=== PATIENT | male | born 1945 | race Caucasian/White ===

== ENCOUNTER 2023-06-13 10:21 | Emergency (ER) | payer OTHER, MEDICARE, SELFPAY ==
[2023-06-13 10:25] VITALS: BP 152/75
[2023-06-13 10:43] VITALS: BMI 29.3
--- NOTE | 2023-06-13 10:55 | EDRN ---
Daisy GABRIEL currently at the pts bedside speaking with the pt
[2023-06-13 11:00] VITALS: BP 151/71
--- NOTE | 2023-06-13 11:06 | ED.GENMED ---
History of Present Illness
<Daisy Jewell PA-C - Last Filed: 06/13/23 18:02>
General
Chief Complaint: Back Pain
Source: patient
Exam Limitations: none
Time Seen by Provider: 06/13/23 10:36
Nursing documentation reviewed up to this point in time: agreed with
Travel History
Have you had any contact with someone who has COVID-19?: No
Do you have any symptoms of coronavirus? Fever > 100 degrees, chills, cough, shortness of breath, sore throat, loss of taste or smell, muscle aches, or headache?: No
History of Present Illness
History of Present Illness:
78 Y/O M with h/o HTN, HLD
remote lumbar surgery L4/L5
here with lower back pain x 1 mo after shoveling snow
he says it was mild but then he took down a fence last week and did some liftin gand bending and it becameworse
now he has pain and stiffness amber in the morning and feels some difficulty getting around. yesterday he took aleve and ibuprofen
was able to move around better by the afternoon
this morning when he woke up he was having more pain so he called his PCP who instructed him to t go to the ER
this am at 4 am he took 800 mg ibuprofen and then aroun d8 am took 2 aleve. he applied lidocaine patch
has been icing off and on
this am he feels al ittle tinglign
Past History
<Daisy Jewell PA-C - Last Filed: 06/13/23 18:02>
Past History
ED Past Medical History: HTN, Hypercholesterolemia and Other (Prediabetes)
ED Past Surgical History: None
Social History
Tobacco: Former smoker
Alcohol: Occasional
Personal:
Living: with family
Family History
Family History: Diabetes and Other (Stroke)
Phy Exam
<Daisy Jewell PA-C - Last Filed: 06/13/23 18:02>
Physical Exam
Physical Exam:
GENERAL: Alert , in no apparent distress, comfortable at rest, able to walk steadily;
HEAD: NCAT
NECK: no midline tenderness, active ROM intact, no paraspinal muscle tenderness;
CARDIAC: Regular rate and rhythm, no edema
LUNGS: Clear breath sounds bilaterally, no acute respiratory distress, no wheezes/rales/rhonchi
ABDOMEN: Soft, without focal tenderness, no r/g, no cvat, normal bowel sounds, nondistended
NEUROLOGICAL: Alert and oriented, no focal neuro deficits, CN intact, 5/5 strength, sensation intact, ambulation slight limp left leg
SKIN: Warm and dry,
MUSCULOSKELETAL: No edema, well perfused. normal hip inspection
flexes hips normally, minimal discomfort with righ thip internal rotation
Back: No midline tenderness, mild right lumbar paraspinal spasm and tendneress
normal sensation
neg straight leg raise b/l
PSYCH: Normal and appropriate interaction.
Course
<Daisy Jewell PA-C - Last Filed: 06/13/23 18:02>
Orders/Labs/Results
Orders:
Orders
06/13/23 10:42
EKG [Electrocardiogram (*1)] Urgent
Reason for Study: Chest Pain
06/13/23 11:05
Hydrocodone 5/APAP 325 [Rusk 5/325] 1 tablet PO NOW STA
Prednisone [Deltasone] 50 mg PO NOW STA
Lumbar Spine Complete, 4 View [CR Lumbar Spine Comp Min 4 Vw*] Urgent
Comment:
Reason For Exam: LOW BACK PAIN AFTER SHOVELING 1 MO AGO
Vital Signs
Initial and Last Documented VS:
Initial Vital Signs
Temp Pulse Resp BP Pulse Ox
97.9 F 60 16 152/75 98
06/13/23 10:25 06/13/23 10:25 06/13/23 10:25 06/13/23 10:25 06/13/23 10:25
Last Documented Vital Signs
Temp Pulse Resp BP Pulse Ox
97.9 F 54 16 151/71 96
06/13/23 10:25 06/13/23 11:15 06/13/23 10:25 06/13/23 11:00 06/13/23 10:43
<Julius Barrett DO - Last Filed: 06/13/23 18:17>
Orders/Labs/Results
Orders:
Orders
06/13/23 10:42
EKG [Electrocardiogram (*1)] Urgent
Reason for Study: Chest Pain
06/13/23 11:05
Hydrocodone 5/APAP 325 [Rusk 5/325] 1 tablet PO NOW STA
Prednisone [Deltasone] 50 mg PO NOW STA
Lumbar Spine Complete, 4 View [CR Lumbar Spine Comp Min 4 Vw*] Urgent
Comment:
Reason For Exam: LOW BACK PAIN AFTER SHOVELING 1 MO AGO
Vital Signs
Initial and Last Documented VS:
Initial Vital Signs
Temp Pulse Resp BP Pulse Ox
97.9 F 60 16 152/75 98
06/13/23 10:25 06/13/23 10:25 06/13/23 10:25 06/13/23 10:25 06/13/23 10:25
Last Documented Vital Signs
Temp Pulse Resp BP Pulse Ox
97.9 F 54 16 151/71 96
06/13/23 10:25 06/13/23 11:15 06/13/23 10:25 06/13/23 11:00 06/13/23 10:43
<Daisy Jewell PA-C - Last Filed: 06/13/23 18:02>
MDM/Problems Addressed
Differential Diagnosis Includes:
lumbar spasm, strain, DJD, compression fx
MDM/Problems Addressed:
78 y/o M with h/o chronic back issues, s/p remote back surgery
here with low back pain after shoveling 1 mo ago
and was doing ok but then did some other work an dexacerbated and now has pain/stiffness in the mornign in his lower back and it eases throughotu the day
changing positions is worst
he has no radiation of pain into legs, weakness,
had a little tinglign bottom ofhis foot this am
no incontience
on exam has paraspinal muscle spasm right lumbar with fairly decent ROM and neg straight legr asie, normal strength and sensation
ambulates well
xrays show DJD in lower lumbar spine
pt requetsing poain control stronger than tylenol and nsaids
no contraindications to steroids, so will try round of predjnisone and vicodin for stronger pain
f/u wiht pcp
<Daisy Jewell PA-C - Last Filed: 06/13/23 18:02>
*Critical Care Note
Total Time (30-74mins, 75-104mins- exclusive of procedures): Not Applicable
ED Attending Note
<Daisy Jewell PA-C - Last Filed: 06/13/23 18:02>
-
Portions of this chart may have been created with voice recognition software.� Occasional wrong word or��sound alike� substitutions may have occurred due to the inherent limitations of voice recognition software.
<Julius Barrett DO - Last Filed: 06/13/23 18:17>
ED Attending Note
Patient seen and examined by attending physician: Yes
I performed the substantive portion of visit, reviewed & personally made and approve the management plan that is documented in note by myself or BRII.: Yes
ED Attending Note:
Nonfocal neuroexam. Imaging grossly unremarkable for acute finding. No fall. Outpatient follow-up with Dr. Armas. Oral steroids. Pain control
Discharge Plan
Departure
Patient Disposition: Home (Routine Discharge)
Date of Disposition: 06/13/23
Time of Disposition: 12:27
Patient with high blood pressure during this ER visit?: Yes
Condition: Fair
Covid-19: Not Applicable
Discharge Problem:
Low back pain, Degenerative arthritis of lumbar spine, Muscle spasm
Instructions: Degenerative Disc Disease (DC), BLOOD PRESSURE
Prescriptions:
New
hydrocodone-acetaminophen 5-325 mg tablet
1 tab PO Q8H PRN (Reason: Pain) Qty: 12 0RF
prednisone 20 mg tablet
40 mg PO DAILY Qty: 8 0RF
lidocaine 5 % adhesive patch,medicated
1 patch topical DAILY PRN (Reason: pain) Qty: 15 0RF
No Action
atorvastatin 40 MG tablet
40 mg PO QPM
valsartan-hydrochlorothiazide 1 EACH tablet
1 ea PO DAILY
Referrals:
Avelino Armas MD [Active] - Follow up in 5-7 days (THIS PHYSICIAN CAN HELP WITH NONOPERATIVE BACK PAIN TREATMENT)
UNKNOWN - PT DOES,NOT KNOW [Family Provider] -
Activity Restrictions/Additional Instructions:
YOUR PAIN IS LIKELY MUSCULOSKELETAL
YOU HAD NO SIGNS OF SPINAL CORD EMERGENCY TODAY
TRY PREDNISONE ONCE A DAY STARTING TOMORROW FOR 4 MORE DAYS
THIS IS AN ANTIINFLAMMATORY
AVOID NSAIDS (MOTRIN OR ALEVE) WHILE ON THE PREDNISONE
YOU CAN TAKE EITHER 2 REGULAR TYLENOL OR THE VICODIN EVERY 6 HOURS NEEDED FOR PAIN . THE VICODIN CAN CAUSE SOME CONSTIPATION SO USE A STOOL SOFTENER IF YOU ARE ON THIS.
YOU CAN CONTINUE HEAT OFF AND ON
LIDOCAINE PATCH 12 HOURS ON 12 HOURS OFF
RETURN FOR: SEVERE PAIN, LEG WEAKNESS/NUMBNESS, INCONTINENCE, FEVER, INABILITY TO WALK OR ANY CONCERNS.
Interventions
Interventions:
*Risk Screen - Suicide Last Done: 06/13/23 10:43
*General Assessment Last Done: 06/13/23 10:43
*Neglect/Abuse Screening Last Done: 06/13/23 10:43
ED- Fall Risk Assessment Last Done: 06/13/23 10:43
*ED COVID-19 Vaccine History Last Done: 06/13/23 10:25
*Nursing Disposition Last Done: 06/13/23 12:33
ED-Musculoskeletal Assessment Last Done: 06/13/23 10:43
Discharge Date and Time
Discharge Date/Time: 06/13/23 12:46
[2023-06-13] MEDS: NORCO 5/325 1 TABLET PO (11:16)
[2023-06-13] MEDS: DELTASONE 50 MG PO (11:17)
--- NOTE | 2023-06-13 11:22 | EDRN ---
this RN medicated the pt and the pt asked this RN if this RN could speak to the PA to see 'Why i would need an xray if it didn't break anything, especially if it's a pulled muscle or muscle spasms, i don't understand why i would need a lumbar xray,
it just doesn't make sense so i would just want some clarification, i know that the PA Samantha was already in here speaking with me i just was a little more clarification that's all', this RN notified Daisy GABRIEL, and the provider is currently
at the pts bedside speaking to the pt and the pts
--- NOTE | 2023-06-13 11:28 | EDRN ---
this RN walked the pt to xray per the pts request, the pt stated to this RN, 'Can i please walk, i really don't want to lie down in the stretcher it hurts my back more, i am perfectly capable of walking', the pt was able to walk to xray with no
issues
--- NOTE | 2023-06-13 11:38 | EDRN ---
the pt ambulated back to ED Bed # 32 escorted by [employer], the pt had no issues ambulating
--- NOTE | 2023-06-13 12:21 | EDRN ---
the pt walked out to the nurses station and approached this RN and asked this RN, 'Can i please get dressed i am waiting here for my results and i just don't feel like i need to be in a gown anymore at this point, is someone going to come and speak
to me about my results', this RN stated to the pt that if they wanted to get dressed that they could and that the provider would be with him to discuss results shortly, the pt also stated to this RN, 'Can you please spell the PA's name to me and
your name as well? i like to document who takes care of me and keep a record of it', this RN provided the pt with the spelling of Daisy Mireles' name and this RN's name, the pt ambulated back into ED Room # 32 and this RN went and spoke to
Daisy GABRIEL, Daisy GABRIEL currently at the pts bedside speaking with the pt and the pts
--- NOTE | 2023-06-13 12:34 | EDRN ---
Dr. Barrett currently at the pts bedside speaking with the pt
== END 2023-06-13 12:46 | disposition home or self-care (01) ==
LOC: EMR 10:21
PROVIDERS: EMERGENCY PHYSICIAN Emergency Medicine
DX: M54.50 Low back pain, unspecified (principal); M51.36 Other intervertebral disc degeneration, lumbar region; M62.838 Other muscle spasm; I10 Essential (primary) hypertension; E78.00 Pure hypercholesterolemia, unspecified; Z87.891 Personal history of nicotine dependence
CPT/HCPCS: 99283; 72110

== ENCOUNTER 2025-02-21 08:33 | Emergency (ER) | payer MEDICARE, OTHER, SELFPAY ==
[2025-02-21 08:37] VITALS: BP 186/78
--- NOTE | 2025-02-21 09:28 | ED.MUSCINJ ---
HPI-Injury
General
Chief Complaint: Musculo-Skeletal Complaint
Source: patient
Exam Limitations: none
Time Seen by Provider: 02/21/25 08:53
History of Present Illness-Injury
Initial Injury comments:
79-year-old male presents complaining of left knee pain and swelling worse over the past 2 days. He has been dealing with intermittent discomfort over the past 2 weeks or so. He thinks he may have flared up somehow doing yard work. No chest pain
or shortness of breath. No fever.
Past History
Past History
ED Past Medical History: HTN, Hypercholesterolemia and Other (Prediabetes)
ED Past Surgical History: None
Social History
Tobacco: Former smoker
Alcohol: Occasional
Personal:
Living: with family
Family History
Family History: Diabetes and Other (Stroke)
Phy Exam
Physical Exam
Physical Exam:
General: Well-appearing male no acute respiratory distress
HEENT: Normal cephalic atraumatic
Heart: Regular rate and rhythm
Lungs: Clear no wheeze
Musculoskeletal exam: Left knee with small to moderate effusion. He is tender over the posterior medial joint line. The knee is stable to ligament exam
Skin is intact
Vascular 2+ DP pulse left foot
Injury Course
Orders/Labs/Results
Orders:
Orders
02/21/25 08:44
Knee, Left 4 or More Views [CR Knee - Left 4 Or More View*] Urgent
Comment:
Reason For Exam: pain
02/21/25 09:22
Venous Doppler Lwr Ext Left [US Periph Venous LOWER Ext LT] Urgent
Comment:
Reason For Exam: pain behind knee
MDM/Problems Addressed
Differential Diagnosis Includes:
Left knee pain. Consider degenerative change versus fracture versus DVT
He does have an effusion on exam but no suspicion of septic arthritis given lack of skin change fever etc. I personally visualized x-rays of the left knee which demonstrate degenerative joint disease throughout with a small effusion. Patient is
concerned for DVT as he is traveling frequently. Will order ultrasound.
*Pulse Oximetry
SaO2: 98
Oxygen Mode of Delivery: Room air
Patient hypoxic: no
*Critical Care Note
Total Time (30-74mins, 75-104mins- exclusive of procedures): Not Applicable
Update Note
Update Note:
Ultrasound negative for DVT. Patient reassured. He does have a significant effusion. He requested that we drain it. The left knee was sterilely prepped with Betadine and the left knee joint was aspirated under sterile conditions using an
18-gauge needle. Approximately 40 mL of clear joint fluid was aspirated. Patient states he experienced relief after this procedure. Knee immobilizer applied will refer to orthopedics
ED Attending Note
-
Portions of this chart may have been created with voice recognition software.� Occasional wrong word or��sound alike� substitutions may have occurred due to the inherent limitations of voice recognition software.
Discharge Plan
Departure
Patient Disposition: Home (Routine Discharge)
Date of Disposition: 02/21/25
Time of Disposition: 10:49
Patient with high blood pressure during this ER visit?: No
Discharge Problem:
DJD (degenerative joint disease)
Instructions: Knee Immobilizer (DC)
Prescriptions:
No Action
atorvastatin 40 MG tablet
40 mg PO QPM
valsartan-hydrochlorothiazide 1 EACH tablet
1 ea PO DAILY
hydrocodone-acetaminophen 5-325 mg tablet
1 tab PO Q8H PRN (Reason: Pain) Qty: 12 0RF
prednisone 20 mg tablet
40 mg PO DAILY Qty: 8 0RF
lidocaine 5 % adhesive patch,medicated
1 patch topical DAILY PRN (Reason: pain) Qty: 15 0RF
Referrals:
Ary Herman DO [Active, Orthopedics]
BRITTNEY BRODERICK MD [Family Provider, Family Practice]
Activity Restrictions/Additional Instructions:
Use brace for support if needed. Continue using anti-inflammatories. Follow-up with orthopedics
Interventions
Interventions:
*Risk Screen - Suicide Last Done: 02/21/25 08:37
*General Assessment Last Done: 02/21/25 08:37
*ED COVID-19 Vaccine History Last Done: 02/21/25 08:37
*ED Influenza Vaccine History Last Done: 02/21/25 08:37
ED-Musculoskeletal Assessment Last Done: 02/21/25 09:00
Discharge Date and Time
Print Language: [place]
== END 2025-02-21 11:05 | disposition home or self-care (01) ==
LOC: EMR 08:33
PROVIDERS: EMERGENCY PHYSICIAN Emergency Medicine; FAMILY PHYSICIAN Student in an Organized Health Care Education/Training Program
DX: M17.12 Unilateral primary osteoarthritis, left knee (principal); M25.462 Effusion, left knee; I10 Essential (primary) hypertension; E78.00 Pure hypercholesterolemia, unspecified; R73.03 Prediabetes; Z87.891 Personal history of nicotine dependence; Z82.3 Family history of stroke; Z83.3 Family history of diabetes mellitus
CPT/HCPCS: 99284; 20610; 73564; 93971